=== PATIENT | male | born 1975 | race Caucasian/White ===

== ENCOUNTER → 2016-05-06 | Outpatient (CLI) | payer SELFPAY ==
[~2016-05-06] MED LIST: JUICE PLUS PO; ZYLOPRIM100 MG PO
--- NOTE | ~2016-05-06 | EKG ---
PATIENT: DANNY HIGGINS UNIT #: [id number] Ventricular Rate: 62 BPM Atrial Rate: 62 BPM P-R Interval: 158 ms QRS Duration: 114 ms Q-T Interval: 424 ms QTC Calculation(Bezet): 430 ms P Kneeland: 53 degrees Calculated R Kneeland: -39 degrees Calculated T Kneeland: 11 degrees Diagnosis Line: Normal sinus rhythm with sinus arrhythmia Diagnosis Line: Left axis deviation Diagnosis Line: Pulmonary disease pattern Diagnosis Line: Abnormal ECG Diagnosis Line: No previous ECGs available Diagnosis Line: Confirmed by JOSE A JACKSON MD ([id number]) on Diagnosis Line: 05/08/2016 11:58:37 PM INTERPRETING MD: RENETTA LE
--- NOTE | ~2016-05-06 | CR63 ---
[facility] A Service of [facility] RADIOLOGY TEXT RESULTS PATIENT: DANNY HIGGINS LOCATION: [facility] : 77 UNIT #: [id number] AGE: [address]: Anthony Bowden MD SEX: M ORDER DR: [id number] [facility] [address] [place], [place] [address] [id number] O MR#: [id number] Acc #: [id number] NAME: DANNY HIGGINS : 1975 SEX: M STUDY DATE/TIME: 05/06/2016 8:15 UNIT: [facility] ROOM: STUDY DESCRIPTION: CR Chest 2 View Attending Physician: Anthony Bowden M.D. Referring Physician: Anthony Bowden M.D. Ordering Physician: Anthony Bowden M.D. Primary Care Physician: Guille Tucker M.D. MEDICAL IMAGING REPORT This report is preliminary unless electronic signature is present EXAM PA and lateral chest INDICATION 40-year-old male preop chest x-ray for LAP-band surgery. COMPARISON None. FINDINGS There are scattered granulomatous calcifications. Heart size is normal. The visualized osseous structures are unremarkable. IMPRESSION No active disease. Dictated by... Jesus López M.D. THIS IS AN ELECTRONICALLY VERIFIED REPORT Jesus López M.D. at 05/06/2016 5:05 PM LEE/laney TD: 05/06/2016 11:10 JOB #: [id number] MEDICAL IMAGING REPORT COPY
--- NOTE | ~2016-05-06 | CR97 ---
[facility] A Service of [facility] RADIOLOGY TEXT RESULTS PATIENT: DANNY HIGGINS LOCATION: [facility] : 77 UNIT #: [id number] AGE: [address]: Anthony Bowden MD SEX: M ORDER DR: [id number] [facility]. [place], [place] [address] [id number] O MR#: [id number] Acc #: [id number] NAME: DANNY HIGGINS : 1975 SEX: M STUDY DATE/TIME: 05/06/2016 9:56 UNIT: [facility] ROOM: STUDY DESCRIPTION: CR Esophagram Attending Physician: Anthony Bowden M.D. Referring Physician: Anthony Bowden M.D. Ordering Physician: Anthony Bowden M.D. Primary Care Physician: Guille Tucker M.D. MEDICAL IMAGING REPORT This report is preliminary unless electronic signature is present EXAM Fluoroscopic esophagram 05/06/2016 COMPARISON 2 views of the chest on the same date. INDICATIONS 40-year-old male with morbid obesity and dyspnea with activity. Preoperative evaluation prior to gastric Lap-Band surgery. Evaluation for possible hiatal hernia. FINDINGS Total fluoro time was 0.2 minutes. Total of 61 images were obtained. The patient was administered barium by mouth followed by imaging of the esophagus in the left posterior oblique position at 3 frames per second. There may be minimal tertiary contractions of the distal esophagus. Esophageal motility is otherwise normal. No evidence of mucosal lesion or extrinsic mass effect. No evidence of stricture of the esophagus. There is no evidence of hiatal hernia. No gastroesophageal reflux is seen on this exam. IMPRESSION 1. Questionable minimal tertiary contractions of the distal esophagus, perhaps clinically insignificant. Otherwise normal esophagram. 2. No evidence of hiatal hernia or gastroesophageal reflux. Dictated by... [facility] A Service [facility] RADIOLOGY TEXT RESULTS PATIENT: DANNY HIGGINS LOCATION: [facility] : 77 UNIT #: [id number] AGE: [address]: Anthony Bowden MD SEX: M ORDER DR: Abram Oglesby M.D. THIS IS AN ELECTRONICALLY VERIFIED REPORT Abram Oglesby M.D. at 05/08/2016 7:16 PM Sue TD: 05/06/2016 18:23 JOB #: [id number] MEDICAL IMAGING REPORT COPY
[2016-05-06 09:38] LABS: HEMATOCRIT 45.7 % (38.0-50.0); HEMOGLOBIN 15.6 gm/dL (13.0-16.0); MEAN CELL VOLUME 89.6 FL (83-96); MEAN CORPUSCULAR HEMOGLOBIN 30.6 PG (28-34); MEAN CORPUSCULAR HGB CONC 34.2 g/dL (30-36); MEAN PLATELET VOLUME 8.8 FL (6.5-11.5); RED BLOOD COUNT 5.1 X10e (3.90-5.60); RED CELL DISTRIBUTION WIDTH 13.9 % (11.0-15.5); WHITE BLOOD COUNT 8.3 X10e3 (4.0-10.5)
[2016-05-06 10:44] LABS: ALBUMIN SERUM 4.1 g/dL (3.5-5.0); ALKALINE PHOSPHATASE 66 U/L (32-92); ALT (SGPT) 30 U/L (10-40); AST (SGOT) 22 U/L (10-42); BILIRUBIN,TOTAL 0.7 mg/dL (0.2-2.0); BLOOD UREA NITROGEN 19 mg/dL (9-23); BUN/CREATININE RATIO 23.75; CALCIUM SERUM 9.2 mg/dL (8.4-10.2); CARBON DIOXIDE 26 mmol/L (22-31); CHLORIDE 105 mmol/L (100-111); CHOLESTEROL 207 mg/dL (0-200); CREATININE SERUM 0.8 mg/dL (0.6-1.4); GLOM FILT RATE Estimated ABOVE60 mL/min (>60); GLUCOSE FASTING 83 mg/dL (70-110); HDL CHOLESTEROL 44 mg/dL (29-75); LDL/HDL RATIO 3 RATIO (0-4); POTASSIUM 4.3 mmol/L (3.5-5.1); PROTEIN TOTAL SERUM 7.1 g/dL (6.0-8.3); SODIUM 139 mmol/L (135-145); TRIGLYCERIDES 93 mg/dL (10-160)
[2016-05-06 10:48] LABS: LDL CHOLESTEROL 144 mg/dL (-130)
== END | disposition home or self-care (01) ==
LOC: CRAD 07:45
PROVIDERS: Surgery
DX: Z01.818 Encounter for other preprocedural examination (principal); E66.01 Morbid (severe) obesity due to excess calories; I49.9 Cardiac arrhythmia, unspecified; R94.31 Abnormal electrocardiogram [ECG] [EKG]
CPT/HCPCS: 36415; 71020; 74220; 80053; 80061; 84443; 85027; 93005

== ENCOUNTER → 2016-05-16 | Day surgery (SDC) | payer SELFPAY ==
--- NOTE | ~2016-05-16 | OR ---
Unit #: [id number] #: [id number] Patient: DANNY HIGGINS [id number] [address] [address] [id number] O MR#: [id number] NAME: DANNY HIGGINS ROOM: Date of Procedure: 05/16/2016 Admission Date: 05/16/2016 Surgeon: Anthony Bowden M.D. : 1975 Attending Physician: Anthony Bowden M.D. Primary Care Physician: Guille Tucker M.D. OPERATIVE REPORT PREOPERATIVE DIAGNOSIS Chronic morbid obesity, body mass index of 47. POSTOPERATIVE DIAGNOSES 1. Chronic morbid obesity, body mass index of 47. 2. Paraesophageal hiatal hernia. PROCEDURES PERFORMED 1. Laparoscopic adjustable gastric band. 2. Laparoscopic paraesophageal hiatal hernia repair. [employer] Guille Marks M.D. ANESTHESIA General endotracheal anesthesia. ESTIMATED BLOOD LOSS Minimal. IV FLUIDS 800 crystalloid. COMPLICATIONS None. INDICATIONS FOR PROCEDURE The patient is a 40-year-old gentleman with chronic morbid obesity. DESCRIPTION OF PROCEDURE The patient was taken to the operating room and placed in supine position. General anesthesia was induced. The abdomen was prepped and draped. A 3-cm incision was then made left of the midline. A 10-mm Visiport was then placed intraabdominal under direct vision. The abdomen was insufflated to 15 mmHg with CO2. The patient was then placed in a steep reversed Trendelenburg. General inspection of the abdomen revealed what appeared to be a paraesophageal hernia. This was identified with a defect at the diaphragm using anterior palpation with the instrument. We then made a small incision in the subxiphoid region. A Antonina liver retractor was then placed intraabdominal and used to retract the left lobe of the liver upward to further expose the paraesophageal hernia and GE junction. I then placed a 5-mm port in the right upper quadrant, a 10-mm Unit #: [id number] #: [id number] Patient: DANNY HIGGINS port in the left upper quadrant, and another 5-mm port in the left lower quadrant. The stomach was retracted medial and downward. Upon retracting the stomach, we took down the paraesophageal ligament, exposing the right and left kobe at the paraesophageal hernia. Any hernia sac was reduced. We then repaired the paraesophageal hernia using interrupted #0 Ethibond sutures in a [id number] type fashion. This formed a snug repair to the anterior esophagus. We then retracted the stomach medially and further exposed the angle of His using Bovie electrocautery. The stomach was then retracted laterally. We then took down the hepatogastric ligament with Bovie electrocautery. This exposed the right kobe. Using blunt dissection, I created a retrogastric tunnel from this point to the angle of His. The band was then placed intraabdominal through the 10-mm port site. This was then brought through the retrogastric tunnel in a pars flaccida technique. The band was then closed anteriorly to form a 20-mL to 25-mL anterior gastric pouch. The fundus was then secured to the anterior pouch to prevent movement around the stomach using two interrupted #0 Ethibond sutures. A third suture was then used as a gathering stitch from the lesser curve to the anterior stomach, gathering and imbricating the remaining fundus of the stomach. The tubing was then brought out through the midline 10-mm port site. All ports and the Antonina liver retractor were removed under direct vision with no evidence of abdominal hemorrhage. A polypropylene mesh was then secured to the posterior face of the laparoscopic band port. This was secured using #0 Ethibond suture. This was then cut to shape. The port was then connected to the tubing and placed into a subcutaneous pocket just anterior to the rectus sheath. Its position was then confirmed. All tubing was then placed intraabdominal. The wounds were then closed with interrupted 4-0 Vicryl. The patient tolerated the procedure well and was sent to the recovery room in good condition. Dictated by... Melissa Keyes/mirta TD: 05/17/2016 06:20 JOB #: [id number] OPERATIVE REPORT Page 1 of 1 X Anthony Bowden MD PROCEDURE OPERATIVE NOTE
--- NOTE | ~2016-05-16 | CR7 ---
[facility] A Service of [facility] RADIOLOGY TEXT RESULTS PATIENT: DANNY HIGGINS LOCATION: [facility] : 77 UNIT #: [id number] AGE: [address]: Anthony Bowden MD SEX: M ORDER DR: [id number] [facility]. [place], [place] [address] [id number] O MR#: [id number] Acc #: [id number] NAME: DANNY HIGGINS : 1975 SEX: M STUDY DATE/TIME: 05/16/2016 08:37 UNIT: [facility] ROOM: STUDY DESCRIPTION: CR Abdomen Single AP View Attending Physician: Anthony Bowden M.D. Ordering Physician: Anthony Bowden M.D. Primary Care Physician: Guille Tucker M.D. MEDICAL IMAGING REPORT This report is preliminary unless electronic signature is present EXAM Abdomen one-view 05/16/2016, 08:44 hours. HISTORY 40-year-old man with morbid obesity, abdominal pain today post lap-band placement. COMPARISON Esophagram 05/06/2016. FINDINGS Single supine view of the abdomen demonstrates a lap-band over the left T10 and T11 costovertebral junctions oriented at 61 degrees from vertical. Radiopaque tubing courses inferiorly to a port and the line and overlying the left lower quadrant cephalad to the left iliac wing. Visualized bowel gas pattern is unremarkable. IMPRESSION Single limited view demonstrates a lap band overlying the left T10 and T11 costovertebral junctions oriented at 61 degrees from vertical. Radiopaque tubing courses inferiorly to a port projecting over the left lower quadrant. Unremarkable bowel gas pattern. Dictated by... Paulette Saab M.D. THIS IS AN ELECTRONICALLY VERIFIED REPORT Paulette Saab M.D. at 05/16/2016 2:27 PM SMM/gz TD: 05/16/2016 13:22 JOB #: [id number] [facility] A Service of [facility] RADIOLOGY TEXT RESULTS PATIENT: DANNY HIGGINS LOCATION: [facility] #: [id number] : 77 UNIT #: [id number] AGE: [address]: Anthony Bowden MD SEX: M ORDER DR: MEDICAL IMAGING REPORT COPY
== END | disposition home or self-care (01) ==
LOC: CSUR 06:08
DX: E66.01 Morbid (severe) obesity due to excess calories (principal); Z68.42 Body mass index [BMI] 45.0-49.9, adult; K44.9 Diaphragmatic hernia without obstruction or gangrene; M10.9 Gout, unspecified; G47.30 Sleep apnea, unspecified; Z79.899 Other long term (current) drug therapy; Z86.69 Personal history of other diseases of the nervous system and sense organs; Z86.79 Personal history of other diseases of the circulatory system; Z83.42 Family history of familial hypercholesterolemia; Z82.49 Family history of ischemic heart disease and other diseases of the circulatory system; Z81.8 Family history of other mental and behavioral disorders; Z91.018 Allergy to other foods
CPT/HCPCS: 74000; C1781; J0330; J0690; J1650; J1885; J2250; J2405; J2710; J3010

== ENCOUNTER → 2016-06-23 | Outpatient (CLI) | payer SELFPAY | END | disposition home or self-care (01) | LOC: CBAR 09:36 | DX: E66.01 Morbid (severe) obesity due to excess calories (principal) | CPT/HCPCS: 76000 ==

== ENCOUNTER → 2016-09-27 | Outpatient (CLI) | payer SELFPAY | END | disposition home or self-care (01) | LOC: CBAR 12:03 | DX: E66.01 Morbid (severe) obesity due to excess calories (principal) | CPT/HCPCS: 76000 ==

== ENCOUNTER → 2016-11-08 | Outpatient (CLI) | payer SELFPAY | END | disposition home or self-care (01) | LOC: CBAR 11:14 | DX: E66.01 Morbid (severe) obesity due to excess calories (principal) | CPT/HCPCS: 76000 ==